=== PATIENT | male | born 1960 | race Caucasian/White ===

== ENCOUNTER 2019-09-05 11:02 | Emergency (ER) | payer OTHER, BC ==
[~2019-09-05] VITALS: Ht 185.4 cm; Wt 131.5 kg
[2019-09-05] MEDS ORDERED: PRILOSEC10 M1 PO (11:21)
[2019-09-05] MEDS ORDERED: GLUCOPHAGE500 MG PO (12:13)
[2019-09-05] MEDS ORDERED: LISINOPRIL10 MG (12:13)
[2019-09-05] MEDS ORDERED: FLOMAX0.4 MG PO (12:14)
[2019-09-05] MEDS ORDERED: OMEGA 3 500 SO1 EACH (12:14)
[2019-09-05] MEDS ORDERED: VITAMIN D21250 MCG (12:14)
[2019-09-05] MEDS ORDERED: PROSCAR5 MG PO (12:15)
[2019-09-05] MEDS ORDERED: MORPHINE SULFAT15 MG PO (13:23)
[2019-09-05] MEDS ORDERED: CRUTCH1 EACH MISC (13:23)
== END 2019-09-05 14:10 | disposition home or self-care (01) ==
LOC: ED 11:02 → EDBD 11:04 → ED 11:04
DX: S92.062A Displaced intraarticular fracture of left calcaneus, initial encounter for closed fracture (principal); W01.0XXA Fall on same level from slipping, tripping and stumbling without subsequent striking against object, initial encounter
CPT/HCPCS: 73610; 73700; 99284-25; A9270